=== PATIENT | female | born 1990 ===

== ENCOUNTER 2016-12-29 23:16 | Emergency (ER) | payer SELFPAY ==
[~2016-12-29] VITALS: Ht 167.6 cm; Wt 58.5 kg
[2016-12-29 23:20] VITALS: Ht 167.6 cm; Wt 58.5 kg
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
== END 2016-12-30 01:15 | disposition left against medical advice (07) ==
LOC: FTE 23:16
DX: S69.92XA Unspecified injury of left wrist, hand and finger(s), initial encounter (principal); F17.210 Nicotine dependence, cigarettes, uncomplicated; S19.9XXA Unspecified injury of neck, initial encounter; S29.9XXA Unspecified injury of thorax, initial encounter; S49.91XA Unspecified injury of right shoulder and upper arm, initial encounter; S09.90XA Unspecified injury of head, initial encounter; Y09 Assault by unspecified means
CPT/HCPCS: 99282